=== PATIENT | female | born 1970 | race African-American/Black ===

== ENCOUNTER 2018-11-11 15:46 | Inpatient (IN) | payer BC, OTHER ==
[2018-11-11] MEDS ORDERED: Fentanyl 100 MCG/2 ML VIAL ONE (15:54)
[2018-11-11] MEDS ORDERED: Adacel (T-DAP) 0.5 ML SYRINGE ONE (15:54)
[2018-11-11 16:00] LABS: Mean Corpuscular HGB CONC 32.4 g/dL (32.0-36.0); Mean Corpuscular Hemoglobin 27.6 pg (27.0-31.0); Mean Corpuscular Volume 85.3 fL (78.0-98.0); Mean Platelet Volume 8.7 fL (7.4-10.4); Platelet Count 357 thou/uL (130-400); RBC Distribution Width 13.9 % (11.5-14.5); Red Blood Cell (RBC) Count 4.36 mill/uL (4.20-5.40); White Blood Cell (WBC) Count 20.7 thou/uL (4.8-10.8)
[2018-11-11 16:05] LABS: Actual Bicarbonate (HCO3a) 19.9 mEq/L (22-28); Analyzer IN Cardio ER; Base Excess (BEa) -6.2 mEq/L (-2.0 to +3.0); CO2 Tension 41.6 mmHg (35.0-45.0); Calcium, Ionized 1.21 mmol/L (1.12-1.30); Carboxyhemoglobin (COHb) 1.1 gm% (0.0-3.0); Hemoglobin (Hb) 12.9 g/dL (12.0-16.0); Potassium - ABG Lab 3.29 mmol/L (3.70-5.30)
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
[2018-11-11 16:07] LABS: Prothrombin Time 13.1 SEC (12.0-14.7)
[2018-11-11 16:09] LABS: PTT 22.4 SEC (22.9-36.1)
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
[2018-11-11 16:10] LABS: Lactic Acid 1.7 mmol/L (0.5-2.2)
[2018-11-11 16:15] LABS: ALT (SGPT) 86 U/L (8-55); AST (SGOT) 105 U/L (5-34); Alkaline Phosphatase 76 U/L (40-110); Anion Gap 12 mmol/L (10-20); BUN (Urea Nitrogen) 14 mg/dL (7.0-18.7); Bilirubin, Total 0.4 mg/dL (0.2-1.2); Calc. Creatinine Clearance 0 mL/min (70-130); Calcium 9.2 mg/dL (7.8-10.44); Carbon Dioxide 21 mmol/L (22-29); Chloride 108 mmol/L (98-107); Estimated GFR-MDRD 55; Globulin 3.3 g/dL (2.4-3.5); Glucose 222 mg/dL (70-105); Potassium 3.4 mmol/L (3.5-5.1); Protein, Total 7.3 g/dL (6.0-8.3); Sodium 138 mmol/L (136-145)
[2018-11-11 16:19] LABS: Band 5 % (5-11); Lymphocytes 13 % (21-51); MDiff Complete? YES; Monocytes 4 % (0-10); Neutrophil 77 % (42-75); Platelet Morphology Comment Appears Adequate
[2018-11-11] MEDS ORDERED: fentaNYL Citrate/PF 2,000 MCG in Sodium Chloride 0.9% 60 ML IV SCH (16:20)
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
[2018-11-11] MEDS ORDERED: Dextrose 5% in Water 1,000 ML IV PRN (16:43)
[2018-11-11] MEDS ORDERED: Promethazine HCl 25 MG/ML VIAL IM PRN (16:43)
[2018-11-11] MEDS ORDERED: Dextrose 50% Abboject 50 ML SYRINGE SLOW IVP PRN (16:43)
[2018-11-11] MEDS ORDERED: Ondansetron PF 4 MG/2 ML Vial IVP PRN (16:43)
[2018-11-11] MEDS ORDERED: hydrALAZINE 20 MG/ML VIAL SLOW IVP PRN (16:43)
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
[2018-11-11 17:16] LABS: Phosphorus 3.9 mg/dL (2.3-4.7)
[2018-11-11 17:18] LABS: Alcohol Less than 10 mg/dL (Less than 10); Magnesium 1.8 mg/dL (1.6-2.6)
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
[2018-11-11] MEDS ORDERED: Ventilator Sedation Protocol 1 EACH FS SCH (17:30)
[2018-11-11] MEDS ORDERED: Morphine 2 MG/ML SYRINGE SLOW IVP PRN (17:32)
[2018-11-11] MEDS ORDERED: Propofol BOLUS 1,000 MG/100 ML VIAL IV PRN (17:32)
[2018-11-11] MEDS ORDERED: DISCONTINUE PREVIOUS NARCOTIC PAIN MEDICATIONS AND BENZODIAZEPINES FS SCH (17:32)
[2018-11-11] MEDS ORDERED: Fentanyl BOLUS 250 ML IVPB PRN (17:32)
[2018-11-11] MEDS ORDERED: Lorazepam 2 MG/ML VIAL SLOW IVP PRN (17:32)
[2018-11-11 17:50] LABS: Bilirubin Negative (Negative); Blood, Urine Negative (Negative); Clarity Clear (Clear); Glucose, Urine (Dipstick) Greater than 1000 mg/dL (Negative); Leukocyte Negative Leu/uL (Negative); Nitrite Negative (Negative); Protein, Urine (Dipstick) Negative (Neg-Trace); Urobilinogen Normal mg/dL (Less than 2)
[2018-11-11] MEDS ORDERED: ISOVUE-370 76%-LOCM 1 ML ONE (18:18)
[2018-11-11 18:21] LABS: Amphetamine Not Detected (NotDetected); Barbiturates Screen Not Detected (NotDetected); Benzodiazepine Screen Not Detected (NotDetected); Cocaine Metabolite Screen Not Detected (NotDetected); Medtox Control Line Valid? VALID (VALID); Medtox Reader # READER 4; Methadone Not Detected (NotDetected); Methamphetamine Not Detected (NotDetected); Opiate Screen Not Detected (NotDetected); Oxycodone Screen Not Detected (NotDetected); Phencyclidine (PCP) Not Detected (NotDetected); THC/Cannabinoid Screen Not Detected (NotDetected); Tricyclic Screen Not Detected (NotDetected)
[2018-11-11] MEDS ORDERED: Magnesium 2 GM/50 ML 2 GM in Premix Bag 1 BAG IVPB SCH (19:30)
[2018-11-11] MEDS ORDERED: Potassium Chloride 40 MEQ in Sodium Chloride 0.9% 250 ML 250 ML IVPB SCH (19:30)
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
[2018-11-11] MEDS: Sodium Chloride 0.9% 1,000 ML IV SCH (20:54)
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
[2018-11-11] MEDS: Famotidine/PF 20 mg/2ml Vial SLOW IVP SCH (21:09)
[2018-11-11] MEDS: Propofol 1,000 MG/100 ML VIAL IV PRN (22:09)
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
[2018-11-12] MEDS: Acetaminophen 1,000 MG in Premix Bag 1 BAG IVPB SCH ×5 (00:27→23:40)
[2018-11-12] MEDS: Sodium Chloride 0.9% 1,000 ML IV SCH ×3 (00:27→18:24)
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
[2018-11-12 02:10] VITALS: BMI 31.7
[2018-11-12] MEDS: Propofol 1,000 MG/100 ML VIAL IV PRN (05:44)
[2018-11-12] MEDS: Insulin Regular 300 UNITS/3 ML VIAL SC PRN (06:16)
[2018-11-12 07:02] LABS: Hemoglobin 9.7 g/dL (12.0-16.0); Mean Corpuscular HGB CONC 32.7 g/dL (32.0-36.0); Mean Corpuscular Hemoglobin 27.4 pg (27.0-31.0); Mean Corpuscular Volume 83.7 fL (78.0-98.0); Mean Platelet Volume 9.4 fL (7.4-10.4); Platelet Count 277 thou/uL (130-400); Red Blood Cell (RBC) Count 3.55 mill/uL (4.20-5.40); White Blood Cell (WBC) Count 10.3 thou/uL (4.8-10.8)
[2018-11-12 07:11] LABS: #Lymphocytes 1.8 thou/uL (1.20-3.40); #Monocytes 0.9 thou/uL (0.11-0.59); #Neutrophils 7.7 thou/uL (1.40-6.50); %Eosinophils 0.4 % (0.0-10.0); %Lymphocytes 16.9 % (21.0-51.0); %Monocytes 8.6 % (0.0-10.0); %Neutrophils 74.1 % (42.0-75.0)
[2018-11-12 07:13] LABS: Anion Gap 13 mmol/L (10-20); BUN (Urea Nitrogen) 10 mg/dL (7.0-18.7); Calc. Creatinine Clearance 123 mL/min (70-130); Calcium 8.3 mg/dL (7.8-10.44); Carbon Dioxide 18 mmol/L (22-29); Chloride 111 mmol/L (98-107); Estimated GFR-MDRD 90; Glucose 155 mg/dL (70-105); Magnesium 2.3 mg/dL (1.6-2.6); Potassium 3.9 mmol/L (3.5-5.1); Sodium 138 mmol/L (136-145)
[2018-11-12 07:40] LABS: Actual Bicarbonate (HCO3a) 18.4 mEq/L (22-28); Calcium, Ionized 1.17 mmol/L (1.12-1.30); Hemoglobin (Hb) 11.6 g/dL (12.0-16.0); O2 Tension (PaO2) 295.7 mmHg (80.0-100.0); Potassium - ABG Lab 3.77 mmol/L (3.70-5.30); pH, Arterial 7.37 (7.35-7.45)
[2018-11-12 07:43] LABS: Puncture Site LB
[2018-11-12] MEDS ORDERED: Bacitracin 1 PK TOP PRN (07:44)
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
--- NOTE | 2018-11-12 08:36 | RAD ---
CHEST 1 VIEW: Date: 11/12/18 INDICATION: Left-sided chest tube placement. COMPARISON: Prior chest radiograph dated 11/11/18. FINDINGS: There is a left-sided chest tube in place. No definite pneumothorax is evident. Patient is intubated with gastric catheter placement. No air space opacity is evident. Osseous structures are unchanged. IMPRESSION: Left-sided chest tube without evidence of pneumothorax. POS: BH
[2018-11-12] MEDS: Famotidine/PF 20 mg/2ml Vial SLOW IVP SCH ×2 (08:51→21:22)
[2018-11-12] MEDS: Bacitracin 1 PK TOP SCH ×2 (08:51→21:23)
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
--- NOTE | 2018-11-12 14:14 | CT ---
Head CT without contrast 11/12/2018: COMPARISON: 11/11/2018 HISTORY: Right arm and leg weakness TECHNIQUE: Axial CT imaging at 5 mm intervals from vertex through skull base without contrast FINDINGS: The imaged paranasal sinuses and mastoid air cells demonstrate mild mucosal thickening of t he sphenoid sinus on the left. No displaced calvarial fracture is noted. There are cutaneous rafael within the scalp posteriorly. No intracranial hemorrhage, midline shift, or mass effect is evident on this exam. The questionable area of subarachnoid hemorrhage within the inferior left temporal region is no longe r visualized. However, there may be minimal subarachnoid blood within a few cortical sulci superiorly in the left frontal region, best seen on image 21. In addition, on axial image 25 posterio rly just to the left of midline there is a small focus of increased density measuring 3 mm, suspicious for a small area of hemorrhage. This could be cortically based or could be extra-axial. Th is is a stable finding. IMPRESSION: Questionable small volume subarachnoid blood in left frontal region. Within the posterior medial left frontal lobe near the vertex there is a 3 mm hyperdense focus on the left which could represent a small focus of cortical hemorrhage or extra-axial blood. This may be better assessed via MRI or follow-up CT.
[2018-11-12] MEDS ORDERED: Morphine 4 MG/ML VIAL SLOW IVP PRN (18:06)
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
[2018-11-13] MEDS: Morphine 2 MG/ML SYRINGE SLOW IVP PRN ×2 (00:34→13:40)
[2018-11-13] MEDS: Sodium Chloride 0.9% 1,000 ML IV SCH ×2 (03:10→05:36)
[2018-11-13] MEDS: Acetaminophen 1,000 MG in Premix Bag 1 BAG IVPB SCH ×2 (05:34→11:21)
[2018-11-13 05:37] LABS: #Eosinphils 0.1 thou/uL (0.0-0.7); #Lymphocytes 2.5 thou/uL (1.20-3.40); #Monocytes 0.8 thou/uL (0.11-0.59); #Neutrophils 9.1 thou/uL (1.40-6.50); %Basophils 0.1 % (0.0-1.0); %Eosinophils 0.9 % (0.0-10.0); %Lymphocytes 20.3 % (21.0-51.0); %Monocytes 6.2 % (0.0-10.0); %Neutrophils 72.5 % (42.0-75.0); Hemoglobin 11.3 g/dL (12.0-16.0); Mean Corpuscular HGB CONC 32.3 g/dL (32.0-36.0); Mean Corpuscular Hemoglobin 27.6 pg (27.0-31.0); Mean Corpuscular Volume 85.3 fL (78.0-98.0); Mean Platelet Volume 9.3 fL (7.4-10.4); Platelet Count 284 thou/uL (130-400); RBC Distribution Width 14.1 % (11.5-14.5); Red Blood Cell (RBC) Count 4.09 mill/uL (4.20-5.40); White Blood Cell (WBC) Count 12.5 thou/uL (4.8-10.8)
[2018-11-13 06:03] LABS: Anion Gap 20 mmol/L (10-20); BUN (Urea Nitrogen) 7 mg/dL (7.0-18.7); Calc. Creatinine Clearance 138 mL/min (70-130); Carbon Dioxide 14 mmol/L (22-29); Chloride 113 mmol/L (98-107); Estimated GFR-MDRD Greater than 90; Glucose 104 mg/dL (70-105); Magnesium 2.1 mg/dL (1.6-2.6); Phosphorus 1.9 mg/dL (2.3-4.7); Sodium 143 mmol/L (136-145)
[2018-11-13] MEDS ORDERED: Sodium Phosphate 30 MMOL in Sodium Chloride 0.9% 250 ML 250 ML IVPB SCH (06:45)
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
[2018-11-13] MEDS: Famotidine/PF 20 mg/2ml Vial SLOW IVP SCH ×2 (08:34→20:18)
[2018-11-13] MEDS: Bacitracin 1 PK TOP SCH ×2 (08:35→20:19)
[2018-11-13] MEDS: Lactated Ringer's 1,000 ML IV SCH ×2 (09:07→18:12)
[2018-11-13] MEDS ORDERED: traMADol HCl 50 MG TAB PO PRN (11:28)
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
[2018-11-13] MEDS ORDERED: Haloperidol Lactate 5 MG/ML VIAL SLOW IVP PRN (12:20)
[2018-11-13] MEDS ORDERED: Lorazepam 2 MG/ML VIAL SLOW IVP PRN (12:20)
[2018-11-13] MEDS ORDERED: Haloperidol Lactate 5 MG/ML VIAL SLOW IVP SCH (12:30)
[2018-11-13] MEDS ORDERED: Lorazepam 2 MG/ML VIAL SLOW IVP SCH (12:30)
[2018-11-13] MEDS ORDERED: Morphine 4 MG/ML VIAL ONE (13:47)
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
[2018-11-14] MEDS: Lactated Ringer's 1,000 ML IV SCH ×3 (04:53→22:15)
[2018-11-14 06:12] LABS: Anion Gap 17 mmol/L (10-20); BUN (Urea Nitrogen) 7 mg/dL (7.0-18.7); Calc. Creatinine Clearance 140 mL/min (70-130); Calcium 9.1 mg/dL (7.8-10.44); Carbon Dioxide 16 mmol/L (22-29); Chloride 111 mmol/L (98-107); Estimated GFR-MDRD Greater than 90; Glucose 106 mg/dL (70-105); Magnesium 1.8 mg/dL (1.6-2.6); Phosphorus 2.2 mg/dL (2.3-4.7); Sodium 140 mmol/L (136-145)
[2018-11-14] MEDS ORDERED: Acetaminophen 500 MG TAB PO SCH (08:00)
[2018-11-14] MEDS: Famotidine/PF 20 mg/2ml Vial SLOW IVP SCH ×2 (09:07→20:25)
[2018-11-14] MEDS: Bacitracin 1 PK TOP SCH ×2 (09:07→20:24)
[2018-11-14] MEDS: Senokot S 8.6-50 MG TAB PO SCH ×2 (09:08→20:24)
[2018-11-14] MEDS: Atorvastatin Calcium 40 MG TAB PO SCH (09:08)
[2018-11-14] MEDS: Losartan 25 MG TAB PO SCH (09:08)
[2018-11-14] MEDS: Polyethylene Glycol 3350 17 GM Packet PO SCH (09:08)
[2018-11-14] MEDS: Hydrochlorothiazide 25 MG TAB PO SCH (09:09)
--- NOTE | 2018-11-14 09:40 | RAD ---
SINGLE VIEW CHEST: INDICATIONS: Left-sided chest tube removal. COMPARISON: Prior exam dated 11/13/2018. FINDINGS: The left-sided chest tube has been removed. No pneumothorax is evident. The right lung is clear. The osseous structures are unchanged. IMPRESSION: Removal of left-sided thoracostomy tube. No residual pneumothorax. POS: BH
[2018-11-14] MEDS: Bupropion 150 MG SR TAB PO SCH ×2 (10:20→20:23)
--- NOTE | 2018-11-14 12:03 | PRG ---
DATE OF SERVICE: 11/14/2018 I reviewed Ms. Roach. Cervical spine MRI demonstrates no evidence of worrisome neural element compromise nor any evidence of worrisome soft tissue or ligamentous injury that would suggest cervical spine injury warranting further collar use. We will remove the collar. I think it will take time for her to have improvement in the right upper extremity function as she has likely a peripheral nerve injury. Job ID: [id number]
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
[2018-11-14] MEDS: Acetaminophen 500 MG TAB PO SCH ×3 (12:47→23:40)
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
[2018-11-15 04:51] LABS: Anion Gap 15 mmol/L (10-20); BUN (Urea Nitrogen) 8 mg/dL (7.0-18.7); Calc. Creatinine Clearance 149 mL/min (70-130); Calcium 9.4 mg/dL (7.8-10.44); Carbon Dioxide 20 mmol/L (22-29); Chloride 109 mmol/L (98-107); Estimated GFR-MDRD Greater than 90; Glucose 132 mg/dL (70-105); Magnesium 1.6 mg/dL (1.6-2.6); Phosphorus 2.6 mg/dL (2.3-4.7); Potassium 3.6 mmol/L (3.5-5.1); Sodium 140 mmol/L (136-145)
[2018-11-15] MEDS: Acetaminophen 500 MG TAB PO SCH ×4 (06:10→23:22)
[2018-11-15] MEDS: Insulin Regular 300 UNITS/3 ML VIAL SC PRN ×3 (06:17→18:18)
[2018-11-15] MEDS ORDERED: Magnesium 2 GM/50 ML 2 GM in Premix Bag 1 BAG IVPB SCH (07:30)
[2018-11-15] MEDS: Bupropion 150 MG SR TAB PO SCH ×2 (08:02→20:36)
[2018-11-15] MEDS: Senokot S 8.6-50 MG TAB PO SCH ×2 (08:02→20:36)
[2018-11-15] MEDS: Atorvastatin Calcium 40 MG TAB PO SCH (08:02)
[2018-11-15] MEDS: Bacitracin 1 PK TOP SCH ×2 (08:02→20:37)
[2018-11-15] MEDS: Famotidine/PF 20 mg/2ml Vial SLOW IVP SCH ×2 (08:02→20:36)
[2018-11-15] MEDS: Losartan 25 MG TAB PO SCH (08:02)
[2018-11-15] MEDS: Polyethylene Glycol 3350 17 GM Packet PO SCH (08:03)
[2018-11-15] MEDS: Hydrochlorothiazide 25 MG TAB PO SCH (08:03)
[2018-11-15] MEDS: Lactated Ringer's 1,000 ML IV SCH (08:14)
[2018-11-15] MEDS ORDERED: Haloperidol Lactate 5 MG/ML VIAL SLOW IVP PRN (08:47)
[2018-11-15] MEDS ORDERED: Lorazepam 2 MG/ML VIAL SLOW IVP PRN (10:30)
--- NOTE | 2018-11-15 10:47 | MRI ---
MRI BRAIN WITHOUT CONTRAST: DATE: 11/15/2018.TIME: 8:16 AM. CLINICAL HISTORY: Traumatic brain injury.. COMPARISON: Head CT 11/12/2018 is referenced. FINDINGS: Extra axial spaces: Scant areas of susceptibility are present, although there is prominent motion art ifact. This is most pronounced overlying the high left medial parietal lobe and medially along the right frontoparietal region. Associated areas of increased diffusion weighted signal are present. Fin dings favor small areas of extra-axial hemorrhage/minute petechial parenchymal hemorrhage. Acute infarction: No acute territorial infarction. Ventricular system: Normal in size and morphology for the patient's age. Basal cisterns: Normal. Cerebral parenchyma: There is abnormal T2 hyperintense signal involving the bilateral cerebral hemisp heres likely on the basis of posttraumatic edema, given patient's recent history. Midline shift: None. Cerebellum: Normal. Brainstem: Normal. Paranasal sinuses:Scattered mucosal thickening. Superimposed paranasal sinus fluid is also seen. Righ t mastoid effusion noted. IMPRESSION: 1. Scattered foci of minute susceptibility along with associated cerebral hemispheric parenchymal si gnal abnormalities. Findings favor mild areas of post traumatic contusions/petechial hemorrhagic foci/extra-axial hemorrhage. Evaluation is limited by motion. 2. Continued short-term imaging follow-up May BE obtained to confirm appropriate resolution. Transcribed Date/Time: 11/15/2018 11:41 AM
[2018-11-15] MEDS ORDERED: diphenhydrAMINE 50 MG/ML VIAL ONE (10:55)
[2018-11-15] MEDS ORDERED: diphenhydrAMINE 50 MG/ML VIAL IVP SCH (11:00)
[2018-11-15] MEDS ORDERED: Haloperidol Lactate 5 MG/ML VIAL ONE (11:09)
[2018-11-15] MEDS ORDERED: Gadobenate Dimeglumine 529 MG/1 ML (20ML VIAL) ONE (12:37)
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
[2018-11-16] MEDS: Lactated Ringer's 1,000 ML IV SCH ×2 (02:12→02:57)
[2018-11-16 04:37] LABS: Anion Gap 12 mmol/L (10-20); BUN (Urea Nitrogen) 6 mg/dL (7.0-18.7); Calc. Creatinine Clearance 153 mL/min (70-130); Carbon Dioxide 25 mmol/L (22-29); Chloride 107 mmol/L (98-107); Estimated GFR-MDRD Greater than 90; Glucose 154 mg/dL (70-105); Magnesium 1.5 mg/dL (1.6-2.6); Potassium 3.5 mmol/L (3.5-5.1); Sodium 140 mmol/L (136-145)
[2018-11-16] MEDS: Acetaminophen 500 MG TAB PO SCH ×4 (06:35→23:41)
[2018-11-16] MEDS: Insulin Regular 300 UNITS/3 ML VIAL SC PRN ×3 (06:36→17:57)
[2018-11-16] MEDS ORDERED: Magnesium 2 GM/50 ML 2 GM in Premix Bag 1 BAG IVPB SCH (07:45)
[2018-11-16] MEDS ORDERED: Potassium Phosphate 15 MMOL in Sodium Chloride 0.9% 250 ML 250 ML IVPB SCH (07:45)
[2018-11-16] MEDS: Hydrochlorothiazide 25 MG TAB PO SCH (09:36)
[2018-11-16] MEDS: Atorvastatin Calcium 40 MG TAB PO SCH (09:36)
[2018-11-16] MEDS: Losartan 25 MG TAB PO SCH (09:36)
[2018-11-16] MEDS: Bacitracin 1 PK TOP SCH ×2 (09:37→20:47)
[2018-11-16] MEDS: Famotidine/PF 20 mg/2ml Vial SLOW IVP SCH ×2 (09:37→20:47)
[2018-11-16] MEDS: Polyethylene Glycol 3350 17 GM Packet PO SCH (09:37)
[2018-11-16] MEDS: Bupropion 150 MG SR TAB PO SCH ×2 (09:37→20:47)
[2018-11-16] MEDS: Senokot S 8.6-50 MG TAB PO SCH ×2 (09:37→20:48)
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
[2018-11-16] MEDS: traMADol HCl 50 MG TAB PO PRN (21:52)
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
[2018-11-17] MEDS: Acetaminophen 500 MG TAB PO SCH ×4 (06:02→23:07)
[2018-11-17] MEDS: Hydrochlorothiazide 25 MG TAB PO SCH (09:24)
[2018-11-17] MEDS: Polyethylene Glycol 3350 17 GM Packet PO SCH (09:24)
[2018-11-17] MEDS: Senokot S 8.6-50 MG TAB PO SCH ×2 (09:25→20:41)
[2018-11-17] MEDS: Bupropion 150 MG SR TAB PO SCH ×2 (09:25→20:38)
[2018-11-17] MEDS: Losartan 25 MG TAB PO SCH (09:25)
[2018-11-17] MEDS: Bacitracin 1 PK TOP SCH ×2 (09:26→20:38)
[2018-11-17] MEDS: Famotidine 20 MG TAB PO SCH ×2 (09:26→20:38)
[2018-11-17] MEDS: Atorvastatin Calcium 40 MG TAB PO SCH (09:26)
[2018-11-17] MEDS: Enoxaparin Sodium 40 MG/0.4 ML SYRINGE SC SCH (11:41)
[2018-11-17 11:56] LABS: #Eosinphils 0.1 thou/uL (0.0-0.7); #Lymphocytes 1.6 thou/uL (1.20-3.40); #Monocytes 0.4 thou/uL (0.11-0.59); #Neutrophils 4.8 thou/uL (1.40-6.50); %Basophils 0.4 % (0.0-1.0); %Eosinophils 1.7 % (0.0-10.0); %Lymphocytes 22.6 % (21.0-51.0); %Monocytes 5.9 % (0.0-10.0); %Neutrophils 69.4 % (42.0-75.0); Hemoglobin 11.3 g/dL (12.0-16.0); Mean Corpuscular HGB CONC 32.9 g/dL (32.0-36.0); Mean Corpuscular Hemoglobin 27.2 pg (27.0-31.0); Mean Corpuscular Volume 82.7 fL (78.0-98.0); Mean Platelet Volume 8.3 fL (7.4-10.4); Platelet Count 339 thou/uL (130-400); Red Blood Cell (RBC) Count 4.15 mill/uL (4.20-5.40)
[2018-11-17 12:21] LABS: Anion Gap 14 mmol/L (10-20); BUN (Urea Nitrogen) 8 mg/dL (7.0-18.7); Calc. Creatinine Clearance 136 mL/min (70-130); Calcium 9.7 mg/dL (7.8-10.44); Carbon Dioxide 25 mmol/L (22-29); Chloride 104 mmol/L (98-107); Estimated GFR-MDRD Greater than 90; Glucose 230 mg/dL (70-105); Sodium 139 mmol/L (136-145)
[2018-11-17] MEDS: Insulin Regular 300 UNITS/3 ML VIAL SC PRN ×2 (12:59→20:40)
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
[2018-11-17] MEDS: traMADol HCl 50 MG TAB PO PRN (20:39)
[2018-11-17] MEDS ORDERED: DAPAGLIFLOZIN PO SCH (21:00)
[2018-11-17] MEDS ORDERED: METFORMIN HCL PO SCH (21:00)
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
[2018-11-18] MEDS: Acetaminophen 500 MG TAB PO SCH ×3 (05:48→18:01)
[2018-11-18] MEDS: Insulin Regular 300 UNITS/3 ML VIAL SC PRN ×3 (06:12→20:56)
[2018-11-18] MEDS: Bacitracin 1 PK TOP SCH ×2 (08:58→20:55)
[2018-11-18] MEDS: Polyethylene Glycol 3350 17 GM Packet PO SCH (08:58)
[2018-11-18] MEDS: Hydrochlorothiazide 25 MG TAB PO SCH (08:59)
[2018-11-18] MEDS: Senokot S 8.6-50 MG TAB PO SCH ×2 (09:00→20:55)
[2018-11-18] MEDS: Losartan 25 MG TAB PO SCH (09:00)
[2018-11-18] MEDS: Famotidine 20 MG TAB PO SCH ×2 (09:00→20:56)
[2018-11-18] MEDS ORDERED: Enoxaparin Sodium 40 MG/0.4 ML SYRINGE SC SCH (09:00)
[2018-11-18] MEDS: Atorvastatin Calcium 40 MG TAB PO SCH (09:00)
[2018-11-18] MEDS: Bupropion 150 MG SR TAB PO SCH ×2 (09:02→20:57)
[2018-11-18] MEDS: Enoxaparin Sodium 40 MG/0.4 ML SYRINGE SC SCH (09:03)
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
[2018-11-19] MEDS: Acetaminophen 500 MG TAB PO SCH ×4 (01:20→18:21)
[2018-11-19] MEDS: Insulin Regular 300 UNITS/3 ML VIAL SC PRN ×4 (06:00→21:41)
[2018-11-19] MEDS: Hydrochlorothiazide 25 MG TAB PO SCH (09:39)
[2018-11-19] MEDS: Bacitracin 1 PK TOP SCH ×2 (09:39→21:41)
[2018-11-19] MEDS: Atorvastatin Calcium 40 MG TAB PO SCH (09:40)
[2018-11-19] MEDS: Senokot S 8.6-50 MG TAB PO SCH ×2 (09:40→21:41)
[2018-11-19] MEDS: Losartan 25 MG TAB PO SCH (09:40)
[2018-11-19] MEDS: Famotidine 20 MG TAB PO SCH ×2 (09:40→21:41)
[2018-11-19] MEDS: Polyethylene Glycol 3350 17 GM Packet PO SCH (09:41)
[2018-11-19] MEDS: Enoxaparin Sodium 40 MG/0.4 ML SYRINGE SC SCH (09:41)
[2018-11-19] MEDS: Bupropion 150 MG SR TAB PO SCH ×2 (09:42→21:41)
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
[2018-11-19 23:13] LABS: Bilirubin Negative (Negative); Blood, Urine Negative (Negative); Clarity Turbid (Clear); Glucose, Urine (Dipstick) Normal (Negative); Leukocyte 75 Leu/uL (Negative); Nitrite Negative (Negative); Protein, Urine (Dipstick) Negative (Neg-Trace); RBC/HPF 0-3 HPF (0-3); Urobilinogen Normal mg/dL (Less than 2)
[2018-11-19 23:22] LABS: Bacteria/HPF 4+ HPF (None Seen); Squamous Epithelial 0-3 HPF (0-3)
[2018-11-19 23:23] LABS: Urine Culture Reflex Yes Yes
[2018-11-20] MEDS: Acetaminophen 500 MG TAB PO SCH ×5 (00:23→23:43)
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
[2018-11-20] MEDS: Insulin Regular 300 UNITS/3 ML VIAL SC PRN ×3 (05:57→20:46)
[2018-11-20] MEDS: Famotidine 20 MG TAB PO SCH ×2 (09:03→20:45)
[2018-11-20] MEDS: Enoxaparin Sodium 40 MG/0.4 ML SYRINGE SC SCH (09:03)
[2018-11-20] MEDS: Hydrochlorothiazide 25 MG TAB PO SCH (09:03)
[2018-11-20] MEDS: Losartan 25 MG TAB PO SCH (09:03)
[2018-11-20] MEDS: Bupropion 150 MG SR TAB PO SCH ×2 (09:03→20:45)
[2018-11-20] MEDS: Polyethylene Glycol 3350 17 GM Packet PO SCH (09:04)
[2018-11-20] MEDS: Atorvastatin Calcium 40 MG TAB PO SCH (09:04)
[2018-11-20] MEDS: Bacitracin 1 PK TOP SCH ×2 (09:04→20:46)
[2018-11-20] MEDS: Senokot S 8.6-50 MG TAB PO SCH ×2 (09:04→20:45)
[2018-11-20] MEDS ORDERED: Nitrofurantoin Monohyd/M-Cryst 100 MG CAP PO SCH ×3 (13:42→21:00)
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
[2018-11-20] MEDS: Nitrofurantoin Monohyd/M-Cryst 100 MG CAP PO SCH (20:46)
[2018-11-21] MEDS: Acetaminophen 500 MG TAB PO SCH ×4 (05:44→23:04)
[2018-11-21] MEDS: Insulin Regular 300 UNITS/3 ML VIAL SC PRN ×4 (05:44→20:51)
[2018-11-21] MEDS: Atorvastatin Calcium 40 MG TAB PO SCH (09:34)
[2018-11-21] MEDS: Senokot S 8.6-50 MG TAB PO SCH ×2 (09:35→20:44)
[2018-11-21] MEDS: Famotidine 20 MG TAB PO SCH ×2 (09:35→20:44)
[2018-11-21] MEDS: Nitrofurantoin Monohyd/M-Cryst 100 MG CAP PO SCH ×2 (09:35→20:44)
[2018-11-21] MEDS: Hydrochlorothiazide 25 MG TAB PO SCH (09:36)
[2018-11-21] MEDS: Losartan 25 MG TAB PO SCH (09:36)
[2018-11-21] MEDS: Bupropion 150 MG SR TAB PO SCH ×2 (09:38→20:44)
[2018-11-21] MEDS: Polyethylene Glycol 3350 17 GM Packet PO SCH (09:38)
[2018-11-21] MEDS: Bacitracin 1 PK TOP SCH ×2 (09:38→20:44)
[2018-11-21] MEDS: Enoxaparin Sodium 40 MG/0.4 ML SYRINGE SC SCH (09:38)
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
[2018-11-22] MEDS: Acetaminophen 500 MG TAB PO SCH ×3 (05:36→18:05)
[2018-11-22] MEDS: Insulin Regular 300 UNITS/3 ML VIAL SC PRN ×4 (05:38→21:42)
[2018-11-22] MEDS: Nitrofurantoin Monohyd/M-Cryst 100 MG CAP PO SCH ×2 (09:39→21:38)
[2018-11-22] MEDS: Hydrochlorothiazide 25 MG TAB PO SCH (09:39)
[2018-11-22] MEDS: Bupropion 150 MG SR TAB PO SCH ×2 (09:39→21:38)
[2018-11-22] MEDS: Losartan 25 MG TAB PO SCH (09:39)
[2018-11-22] MEDS: Enoxaparin Sodium 40 MG/0.4 ML SYRINGE SC SCH (09:40)
[2018-11-22] MEDS: Atorvastatin Calcium 40 MG TAB PO SCH (09:40)
[2018-11-22] MEDS: Senokot S 8.6-50 MG TAB PO SCH ×2 (09:40→21:38)
[2018-11-22] MEDS: Bacitracin 1 PK TOP SCH ×2 (09:40→21:42)
[2018-11-22] MEDS: Polyethylene Glycol 3350 17 GM Packet PO SCH (09:41)
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
[2018-11-23] MEDS: Acetaminophen 500 MG TAB PO SCH ×4 (00:42→17:06)
[2018-11-23] MEDS: Insulin Regular 300 UNITS/3 ML VIAL SC PRN ×4 (05:48→21:11)
[2018-11-23] MEDS: Bacitracin Zinc Ointment 30 gm TUBE TOP SCH (09:09)
[2018-11-23] MEDS: Enoxaparin Sodium 40 MG/0.4 ML SYRINGE SC SCH (09:09)
[2018-11-23] MEDS: Bupropion 150 MG SR TAB PO SCH ×2 (09:10→21:05)
[2018-11-23] MEDS: Atorvastatin Calcium 40 MG TAB PO SCH (09:10)
[2018-11-23] MEDS: Polyethylene Glycol 3350 17 GM Packet PO SCH (09:10)
[2018-11-23] MEDS: Senokot S 8.6-50 MG TAB PO SCH ×2 (09:10→21:06)
[2018-11-23] MEDS: Nitrofurantoin Monohyd/M-Cryst 100 MG CAP PO SCH ×2 (09:10→21:05)
[2018-11-23] MEDS: Hydrochlorothiazide 25 MG TAB PO SCH (09:10)
[2018-11-23] MEDS: Losartan 25 MG TAB PO SCH (09:11)
[2018-11-23] MEDS: Bacitracin 1 PK TOP SCH ×3 (09:12→21:05)
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
[2018-11-24] MEDS: Acetaminophen 500 MG TAB PO SCH ×5 (00:44→23:30)
[2018-11-24 04:54] LABS: #Eosinphils 0.2 thou/uL (0.0-0.7); #Lymphocytes 2.8 thou/uL (1.20-3.40); #Monocytes 0.7 thou/uL (0.11-0.59); #Neutrophils 4.9 thou/uL (1.40-6.50); %Basophils 0.5 % (0.0-1.0); %Eosinophils 2.4 % (0.0-10.0); %Lymphocytes 32.4 % (21.0-51.0); %Monocytes 8.2 % (0.0-10.0); %Neutrophils 56.4 % (42.0-75.0); Hemoglobin 11.7 g/dL (12.0-16.0); Mean Corpuscular HGB CONC 32.2 g/dL (32.0-36.0); Mean Corpuscular Hemoglobin 27.9 pg (27.0-31.0); Mean Corpuscular Volume 86.7 fL (78.0-98.0); Mean Platelet Volume 8.9 fL (7.4-10.4); Platelet Count 404 thou/uL (130-400); RBC Distribution Width 14.8 % (11.5-14.5); Red Blood Cell (RBC) Count 4.19 mill/uL (4.20-5.40); White Blood Cell (WBC) Count 8.6 thou/uL (4.8-10.8)
[2018-11-24 05:13] LABS: Anion Gap 13 mmol/L (10-20); BUN (Urea Nitrogen) 10 mg/dL (7.0-18.7); Calc. Creatinine Clearance 129 mL/min (70-130); Calcium 9.8 mg/dL (7.8-10.44); Carbon Dioxide 26 mmol/L (22-29); Chloride 104 mmol/L (98-107); Estimated GFR-MDRD Greater than 90; Glucose 159 mg/dL (70-105); Magnesium 1.9 mg/dL (1.6-2.6); Phosphorus 4.1 mg/dL (2.3-4.7); Potassium 3.6 mmol/L (3.5-5.1); Sodium 139 mmol/L (136-145)
[2018-11-24] MEDS: Insulin Regular 300 UNITS/3 ML VIAL SC PRN ×4 (06:11→21:25)
[2018-11-24] MEDS: Bupropion 150 MG SR TAB PO SCH ×2 (08:33→21:04)
[2018-11-24] MEDS: Losartan 25 MG TAB PO SCH (08:34)
[2018-11-24] MEDS: Hydrochlorothiazide 25 MG TAB PO SCH (08:35)
[2018-11-24] MEDS: Atorvastatin Calcium 40 MG TAB PO SCH (08:35)
[2018-11-24] MEDS: Nitrofurantoin Monohyd/M-Cryst 100 MG CAP PO SCH ×2 (08:35→21:04)
[2018-11-24] MEDS: Senokot S 8.6-50 MG TAB PO SCH ×4 (08:36→21:07)
[2018-11-24] MEDS: Enoxaparin Sodium 40 MG/0.4 ML SYRINGE SC SCH (08:37)
[2018-11-24] MEDS: Bacitracin Zinc Ointment 30 gm TUBE TOP SCH (08:37)
[2018-11-24] MEDS: Polyethylene Glycol 3350 17 GM Packet PO SCH (08:38)
[2018-11-24] MEDS: Bacitracin 1 PK TOP SCH ×3 (08:38→21:04)
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
[2018-11-25] MEDS: Acetaminophen 500 MG TAB PO SCH ×4 (05:19→23:34)
[2018-11-25] MEDS: Insulin Regular 300 UNITS/3 ML VIAL SC PRN ×4 (06:50→20:58)
[2018-11-25] MEDS: Hydrochlorothiazide 25 MG TAB PO SCH (09:01)
[2018-11-25] MEDS: Senokot S 8.6-50 MG TAB PO SCH ×2 (09:01→20:10)
[2018-11-25] MEDS: Losartan 25 MG TAB PO SCH (09:01)
[2018-11-25] MEDS: Bupropion 150 MG SR TAB PO SCH ×2 (09:01→20:58)
[2018-11-25] MEDS: Polyethylene Glycol 3350 17 GM Packet PO SCH (09:01)
[2018-11-25] MEDS: Nitrofurantoin Monohyd/M-Cryst 100 MG CAP PO SCH ×2 (09:01→20:58)
[2018-11-25] MEDS: Atorvastatin Calcium 40 MG TAB PO SCH (09:01)
[2018-11-25] MEDS: Enoxaparin Sodium 40 MG/0.4 ML SYRINGE SC SCH (09:04)
[2018-11-25] MEDS: Bacitracin 1 PK TOP SCH ×3 (09:04→20:58)
[2018-11-25] MEDS: Bacitracin Zinc Ointment 30 gm TUBE TOP SCH (09:07)
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
[2018-11-26 03:17] VITALS: TEMP 98.2
[2018-11-26] MEDS: Acetaminophen 500 MG TAB PO SCH ×2 (06:59→12:57)
[2018-11-26] MEDS: Atorvastatin Calcium 40 MG TAB PO SCH (08:51)
[2018-11-26] MEDS: Losartan 25 MG TAB PO SCH (08:51)
[2018-11-26] MEDS: Senokot S 8.6-50 MG TAB PO SCH (08:52)
[2018-11-26] MEDS: Nitrofurantoin Monohyd/M-Cryst 100 MG CAP PO SCH (08:52)
[2018-11-26] MEDS: Hydrochlorothiazide 25 MG TAB PO SCH (08:52)
[2018-11-26] MEDS: Enoxaparin Sodium 40 MG/0.4 ML SYRINGE SC SCH (08:53)
[2018-11-26] MEDS: Bacitracin Zinc Ointment 30 gm TUBE TOP SCH (08:54)
[2018-11-26] MEDS: Bupropion 150 MG SR TAB PO SCH (08:54)
[2018-11-26] MEDS: Polyethylene Glycol 3350 17 GM Packet PO SCH (09:00)
[2018-11-26] MEDS: Bacitracin 1 PK TOP SCH (09:00)
[2018-11-26 11:40] VITALS: BP 118/81
[2018-11-26] MEDS: Insulin Regular 300 UNITS/3 ML VIAL SC PRN (13:00)
== END 2018-11-26 15:20 | DRG 963 ==
LOC: ERS 15:46 → CCU 16:43 → SURG A 11-13 23:57
PROVIDERS: ADMIT Specialist; ATTEND Specialist
PROC: 0HQFXZZ Repair Right Hand Skin, External Approach (ICD-10-PCS; principal; 2018-11-11)
PROC: 0BH17EZ Insertion of Endotracheal Airway into Trachea, Via Natural or Artificial Opening (ICD-10-PCS; 2018-11-11)
PROC: 5A1935Z Respiratory Ventilation, Less than 24 Consecutive Hours (ICD-10-PCS; 2018-11-11)
PROC: 0HDFXZZ Extraction of Right Hand Skin, External Approach (ICD-10-PCS; 2018-11-18)
DX: S06.6X9A Traumatic subarachnoid hemorrhage with loss of consciousness of unspecified duration, initial encounter (principal); J96.00 Acute respiratory failure, unspecified whether with hypoxia or hypercapnia; S27.0XXA Traumatic pneumothorax, initial encounter; N39.0 Urinary tract infection, site not specified; S92.351A Displaced fracture of fifth metatarsal bone, right foot, initial encounter for closed fracture; R40.2212 Coma scale, best verbal response, none, at arrival to emergency department; E87.6 Hypokalemia; I10 Essential (primary) hypertension; E78.5 Hyperlipidemia, unspecified; E11.65 Type 2 diabetes mellitus with hyperglycemia; R40.2342 Coma scale, best motor response, flexion withdrawal, at arrival to emergency department; S01.01XA Laceration without foreign body of scalp, initial encounter; S61.411A Laceration without foreign body of right hand, initial encounter; E83.39 Other disorders of phosphorus metabolism; R40.2112 Coma scale, eyes open, never, at arrival to emergency department; V89.2XXA Person injured in unspecified motor-vehicle accident, traffic, initial encounter; Y92.415 Exit ramp or entrance ramp of street or highway as the place of occurrence of the external cause; Z79.4 Long term (current) use of insulin; R33.9 Retention of urine, unspecified; E83.42 Hypomagnesemia; R40.2111 Coma scale, eyes open, never, in the field [EMT or ambulance]; R40.2341 Coma scale, best motor response, flexion withdrawal, in the field [EMT or ambulance]; R40.2211 Coma scale, best verbal response, none, in the field [EMT or ambulance]; S82.65XA Nondisplaced fracture of lateral malleolus of left fibula, initial encounter for closed fracture; S14.3XXA Injury of brachial plexus, initial encounter
CPT/HCPCS: 36415; 36416; 51702; 70450; 70551; 71045; 71260; 72125; 72141; 72170; 74177; 80048; 80053; 80306; 80307; 81001; 81003; 82805; 83605; 83735; 84100; 85025; 85610; 85730; 86850; 86900; 86901; 87077; 87086; 87186; 90471; 90715; 94002; 94003; 96360; 96361; 96374; 96376; 99292; A9577; G0390; J0131; J1200; J1630; J1650; J1815; J2060; J2270; J2704; J3010; J3475; J3480; J3490; J7050; Q9966; S0028